=== PATIENT | female | born 1950 | race Caucasian/White ===

== ENCOUNTER 2017-11-15 10:09 | Emergency (ER) | payer MEDICARE ==
[~2017-11-15] VITALS: Ht 160 cm; Wt 81.7 kg
[~2017-11-15 10:09] MED LIST: ALPR1 PO; ASPI81CH PO; CHLO25B PO; HYDCHL25; HYDMOR2; KETO120T TOP; Miralax17 GM PO; OXYACE5T PO; PROM25; Percocet 10-321 EACH PO; SOMA350 MG; Toprol Xl25 MG PO
[2017-11-15] MEDS ORDERED: Cleocin HCl300 MG PO (12:01)
== END 2017-11-15 12:07 | disposition home or self-care (01) ==
LOC: ER 10:09
DX: K04.7 Periapical abscess without sinus (principal); Z88.0 Allergy status to penicillin; Z88.2 Allergy status to sulfonamides; Z88.1 Allergy status to other antibiotic agents; Z88.5 Allergy status to narcotic agent; Z91.040 Latex allergy status; Z79.899 Other long term (current) drug therapy; I10 Essential (primary) hypertension; F41.9 Anxiety disorder, unspecified; Z87.891 Personal history of nicotine dependence
CPT/HCPCS: 64400; 99282-25

== ENCOUNTER 2021-02-18 17:31 | Emergency (ER) | payer MEDICARE ==
[~2021-02-18] VITALS: Ht 160 cm; Wt 88.5 kg
[~2021-02-18 17:31] MED LIST changes: +Cleocin HCl300 MG PO
[2021-02-18 18:02] LABS: BASOPHILS ABSOLUTE AUTO 0.03 K/mm3 (0.00-0.23); BASOPHILS PERCENT AUTO 0 % (0-2); EOSINOPHILS ABSOLUTE AUTO 0.17 K/mm3 (0.00-0.68); EOSINOPHILS PERCENT AUTO 2 % (0-6); Hematocrit 47.8 % (33.0-51.0); Hemoglobin 15.8 g/dL (11.5-16.0); IMMATURE GRAN ABSOLUTE AUTO 0.02 K/mm3 (0.00-0.10); IMMATURE GRAN PERCENT AUTO 0 % (0-1); LYMPHOCYTES ABSOLUTE AUTO 2.67 K/mm3 (0.84-5.20); LYMPHOCYTES PERCENT AUTO 35 % (21-46); MONOCYTES ABSOLUTE AUTO 0.41 K/mm3 (0.16-1.47); MONOCYTES PERCENT AUTO 5 % (4-13); Mean Corpuscular HGB 27.9 pg (26.0-34.0); Mean Corpuscular HGB Conc 33.1 g/dL (31.5-36.5); Mean Corpuscular Volume 85 fL (80-100); Mean Platelet Volume 10.5 fL (9.1-12.4); NEUTROPHILS ABSOLUTE AUTO 4.33 K/mm3 (1.96-9.15); NEUTROPHILS PERCENT AUTO 57 % (41-73); Platelet Count 222 K/mm3 (150-400); RDW Coefficient Variation 12.9 % (11.7-14.2); RDW Standard Deviation 39.3 fL (35.1-46.3); Red Blood Cell Count 5.66 M/mm3 (3.80-5.20); White Blood Cell Count 7.63 K/mm3 (4.00-11.30)
[2021-02-18 18:16] LABS: Ethanol (Alcohol), Blood, Med <3 mg/dL
[2021-02-18 18:20] LABS: International Normalized Ratio 0.97; Prothrombin Time Results 10.2 Sec (9.7-11.5)
[2021-02-18 19:24] LABS: U Amphetamine Screen Not Detected; U Barbituate Screen Not Detected; U Benzodiazapine Screen Not Detected; U Buprenorphine Screen Not Detected; U Cannabinoids Screen Not Detected; U Cocaine Screen Not Detected; U Methadone Screen Not Detected; U Methamphetamine Screen Not Detected; U Opiates Screen Not Detected; U Oxycodone Screen Not Detected; U Phencyclidine Screen Not Detected; U Propoxyphene Screen Not Detected
[2021-02-18 22:48] LABS: Alanine Aminotransfer (ALT/SGP 24 U/L (12-78); Albumin, Blood 3.7 g/dL (3.4-5.0); Alk Phos 65 U/L (50-136); Anion Gap 9 mmol/L (6-16); Aspartate Aminotrans (AST/SGOT 30 U/L (12-37); Bilirubin, Total 0.7 mg/dL (0.1-1.0); Blood Urea Nitrogen 8 mg/dL (8-24); Bun/Creatinine Ratio 9.1 (12.0-20.0); CO2, Blood 24 mmol/L (21-32); Calcium, Blood 9.1 mg/dL (8.5-10.1); Chloride, Blood 108 mmol/L (98-108); Creatinine, Blood 0.88 mg/dL (0.40-1.00); Globulin, Blood 3.8 g/dL (2.2-4.0); Glomerular Filtration Rate >60 (60-); Glucose, Blood 97 mg/dL (70-99); Potassium, Blood 3.6 mmol/L (3.5-5.5); Sodium, Blood 141 mmol/L (136-145); Total Protein, Blood 7.5 g/dL (6.4-8.2)
== END 2021-02-18 23:20 | disposition short-term general hospital (02) ==
LOC: ER 17:31
PROVIDERS: Emergency Medicine
DX: I63.9 Cerebral infarction, unspecified (principal); G81.91 Hemiplegia, unspecified affecting right dominant side; I16.1 Hypertensive emergency; I10 Essential (primary) hypertension; M79.7 Fibromyalgia; Z88.0 Allergy status to penicillin; Z88.2 Allergy status to sulfonamides; Z88.8 Allergy status to other drugs, medicaments and biological substances; Z88.1 Allergy status to other antibiotic agents; Z88.5 Allergy status to narcotic agent; Z88.6 Allergy status to analgesic agent
CPT/HCPCS: 70450; 70496; 70498; 71045; 80053; 85025; 85610; 85730; 92977; 93005; 93010; 96365; 96366; 96375; 96376; 99285-25; A9270; G0480; J0360; J2405; J3101; J7050; Q9967

== ENCOUNTER 2021-04-26 14:40 | Inpatient (IN) | payer MEDICARE ==
[~2021-04-26] VITALS: Ht 160 cm; Wt 70.6 kg
[2021-04-26 15:08] LABS: BASOPHILS ABSOLUTE AUTO 0.06 K/mm3 (0.00-0.23); BASOPHILS PERCENT AUTO 1 % (0-2); EOSINOPHILS ABSOLUTE AUTO 0.48 K/mm3 (0.00-0.68); EOSINOPHILS PERCENT AUTO 4 % (0-6); Hematocrit 50.3 % (33.0-51.0); Hemoglobin 16.4 g/dL (11.5-16.0); IMMATURE GRAN ABSOLUTE AUTO 0.03 K/mm3 (0.00-0.10); IMMATURE GRAN PERCENT AUTO 0 % (0-1); LYMPHOCYTES ABSOLUTE AUTO 3.77 K/mm3 (0.84-5.20); LYMPHOCYTES PERCENT AUTO 33 % (21-46); MONOCYTES ABSOLUTE AUTO 0.58 K/mm3 (0.16-1.47); MONOCYTES PERCENT AUTO 5 % (4-13); Mean Corpuscular HGB 27.3 pg (26.0-34.0); Mean Corpuscular HGB Conc 32.6 g/dL (31.5-36.5); Mean Corpuscular Volume 84 fL (80-100); Mean Platelet Volume 11.4 fL (9.1-12.4); NEUTROPHILS ABSOLUTE AUTO 6.54 K/mm3 (1.96-9.15); NEUTROPHILS PERCENT AUTO 57 % (41-73); Platelet Count 265 K/mm3 (150-400); RDW Coefficient Variation 13.4 % (11.7-14.2); RDW Standard Deviation 40.9 fL (35.1-46.3); Red Blood Cell Count 6.01 M/mm3 (3.80-5.20); White Blood Cell Count 11.46 K/mm3 (4.00-11.30)
[2021-04-26] MEDS ORDERED: LISI20 PO (15:08)
[2021-04-26] MEDS ORDERED: MIRTAZAPINE7.5 M1 PO (15:08)
[2021-04-26] MEDS ORDERED: LIPITOR80 MG PO (15:08)
[2021-04-26] MEDS ORDERED: TIZANIDINE HCL2 M1 PO (15:09)
[2021-04-26] MEDS ORDERED: TRAM50 PO (15:09)
[2021-04-26] MEDS ORDERED: ONDA4 PO (15:10)
[2021-04-26 15:22] LABS: Magnesium, Blood 1.9 mg/dL (1.6-2.4); Troponin I 0.017 ng/mL (0.000-0.040)
[2021-04-26 15:23] LABS: Albumin, Blood 3.4 g/dL (3.4-5.0); Bilirubin, Total 0.7 mg/dL (0.1-1.0); Bun/Creatinine Ratio 21.2 (12.0-20.0); Calcium, Blood 10.3 mg/dL (8.5-10.1); Creatinine, Blood 1.79 mg/dL (0.40-1.00); Globulin, Blood 3.5 g/dL (2.2-4.0); Potassium, Blood 3.7 mmol/L (3.5-5.5); Total Protein, Blood 6.9 g/dL (6.4-8.2)
[2021-04-26 18:26] LABS: Source, Urine Clean Catch
[2021-04-26 18:30] LABS: Blood, Urine Neg (Neg); Glucose Qualitative, Urine Neg (Neg); Ketones, Urine 1+ (Neg); Leukocyte Esterase, Urine Neg (Neg); Nitrite, Urine Neg (Neg); Protein, Urine Neg (Neg); Urobilinogen, Urine NORM (Normal)
[2021-04-26 18:36] LABS: Appearance, Urine Clear (Clear); Bilirubin, Urine 1+ (Neg); Color, Urine Pale Yellow (P-Yellow)
[2021-04-27 04:42] LABS: Hematocrit 36.1 % (33.0-51.0); Hemoglobin 11.9 g/dL (11.5-16.0); Mean Corpuscular HGB 27.8 pg (26.0-34.0); Mean Corpuscular Volume 84 fL (80-100); Mean Platelet Volume 10.9 fL (9.1-12.4); Platelet Count 118 K/mm3 (150-400); RDW Coefficient Variation 13.2 % (11.7-14.2); RDW Standard Deviation 40.6 fL (35.1-46.3); Red Blood Cell Count 4.28 M/mm3 (3.80-5.20); White Blood Cell Count 5.47 K/mm3 (4.00-11.30)
[2021-04-27 05:22] LABS: Bun/Creatinine Ratio 21.8 (12.0-20.0); Calcium, Blood 8.4 mg/dL (8.5-10.1); Creatinine, Blood 1.24 mg/dL (0.40-1.00); Potassium, Blood 3.5 mmol/L (3.5-5.5)
--- NOTE | 2021-04-27 12:59 | NUR ---
PATIENTS DAUGHTER RAYMOND CALLED THE PATIENTS ROOM PHONE AND REQUESTED TO SPEAK TO A NURSE. DAUGHTER STATED THAT "MOM SOUNDS MORE CONFUSED", SHE SAID THAT IN THE MORNINGS HER MOM SOMETIMES IS A BIT CONFUSED, BUT CLEARS AND IT ISN'T THIS MUCH. I NOTED WHEN ASSESSED THIS AM THAT THE PATIENT WAS ONLY ALERT X 1. SHE DOESN'T KNOW WHERE SHE IS OR HOW SHE GOT HERE. PATIENT AND DAUGHTER CONFIRMED THAT SHE DID HAVE A STROKE LAST FALL. SHE HAD NO OTHER COMPLAINTS.
--- NOTE | 2021-04-27 18:41 | NUR ---
PATIENT HAS SOME CONFUSION. SHE ISN'T ABLE TO RECALL COMING TO THE ER, AND WAS NOT ABLE TO REMEMBER WHERE SHE WAS WHEN ASSESSED THIS AM. DAUGHTER OF PATIENT STATED NOT HER NORM. PROVIDER WAS UPDATED AND HE ORDERED A CT. CT DOES SHOW SOME CHANGE FROM THE LAST CT IN THE SYSTEM. PATIENT HAS LEFT SIDES WEAKNESS THAT IS HER BASELINE. 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 SHE IS TEARFUL AT TIMES, WISHING TO GO HOME. PATIENT HAS NO COUGH, LS CLEAR.
--- NOTE | 2021-04-28 03:16 | NUR ---
SHIFT SUMMARY AOX3 WITH SOME CONFUSION AT TIME CONT EXTENSIVE CARE DUE TO LEFT SIDE WEAKNESS PLEASANT NO S/S OF ANXIETY.MCGUIRE DRANING ANBER URINE 800ML NOTED C/O PAIN TO HET LEFT HAND TRAMADOL ADMIN PER EMAR WITH POSTIVE EFFECT PT VERBALIZED NO PAIN AT THIS MOMENT
[2021-04-28 05:35] LABS: Bun/Creatinine Ratio 16.4 (12.0-20.0); Calcium, Blood 8.4 mg/dL (8.5-10.1); Creatinine, Blood 0.98 mg/dL (0.40-1.00)
--- NOTE | 2021-04-28 10:48 | NUR ---
IV FLUID NS RATE CHANGED TO 50ML/HOUR.
--- NOTE | 2021-04-28 17:37 | NUR ---
PATIENT CONTINUES TO HAVE ALTERED MENTATION. SHE HAD AN EPISODE OF CONFUSION TODAY WHEN SHE THOUGHT THAT THE CHUTE TAPPER/NURSE TOOK THE TAHMINA OUT OF HER HAIR BECAUSE THEY WOULD GAIN POINTS BY DOING SO. SHE WAS TEARFUL EXPLAINING THAT HER DAUGHTER JUST BRAIDED HER HAIR TODAY. PATIENTS APPETITE WAS POOR TODAY HOWEVER SHE IS EATING HER DINNER AND ENJOYING IT NOW. PATIENTS DAUGHTER WAS UPDATED BY PHONE TODAY. MCGUIRE CATH WAS DISCONTINUED TODAY. SHE DID VOID AFTER THE MCGUIRE WAS REMOVED. IT SEEMED TO BE CLOUDY AND HAVE A FOUL ODOR HOWEVER THERE WAS SOME CONTAMINATION WITH STOOL. WILL REPORT TO NOC SHIFT TO MONITOR FOR S & S OF UTI.
--- NOTE | 2021-04-29 03:41 | NUR ---
SHIFT SUMMARY RECEIVED REPORT FROM ONGOING STAFF PATIENT HAS BEEN EXBITING SOME CONFUSION DURING DAY SHIFT.PATIENT PLEASANT IN THIS SHIFT NO INCREASED CONFUSION NOTED IN THIS SHIFT ABLE TO VOICE PAIN AND MAKE NEEDS KNOWN.ASSISTED WITH INCONTINENCE CARE FOR BLADDER AND BOWEL.
[2021-04-29] MEDS ORDERED: AMLO5 PO (11:40)
[2021-04-29] MEDS ORDERED: ASPI81CH PO (11:40)
--- NOTE | 2021-04-29 14:28 | NUR ---
DISCHARGE PT & DAUGHTER, CHIKI EDUCATED ON DC INSTRUCTIONS AND NEW MEDS. NO FURTHER NEED FOR INSTRUCTION AT THIS TIME. PT WHEELED OUT BY AIDE & DRIVEN HOME BY DAUGHTER. IV REMOVED & INTACT. NO ACUTE CHANGES IN ASSESSMENT PRIOR TO DC. BELONGINGS SENT HOME WITH PT.
== END 2021-04-29 14:25 | disposition home or self-care (01) | DRG 682 ==
LOC: ER 14:40 → MEDS 14:41 → ERHOLD 14:41 → MEDS 20:14 → ENPENDDIS 04-29 11:19 → MEDS 04-29 14:25
PROVIDERS: Emergency Medicine; Internal Medicine; Nurse Practitioner Acute Care; ADMIT Internal Medicine
DX: N17.9 Acute kidney failure, unspecified (principal); R53.2 Functional quadriplegia; G93.40 Encephalopathy, unspecified; I47.1 Supraventricular tachycardia; Z66 Do not resuscitate; R33.9 Retention of urine, unspecified; Z68.34 Body mass index [BMI] 34.0-34.9, adult; E86.0 Dehydration; E66.01 Morbid (severe) obesity due to excess calories; E87.6 Hypokalemia; I10 Essential (primary) hypertension; M79.7 Fibromyalgia; Z86.73 Personal history of transient ischemic attack (TIA), and cerebral infarction without residual deficits; Z90.49 Acquired absence of other specified parts of digestive tract; Z98.890 Other specified postprocedural states; Z79.899 Other long term (current) drug therapy; Z88.5 Allergy status to narcotic agent; Z88.8 Allergy status to other drugs, medicaments and biological substances; Z87.891 Personal history of nicotine dependence
CPT/HCPCS: 36415; 51702; 51798; 70450; 76770; 80048; 80053; 81003; 82550; 83735; 84132; 84484; 85025; 85027; 93005; 93010; 96372; 96374; 96375; 99285-25; A9270; G0378; J0153; J1644; J2405; J7030

== ENCOUNTER 2021-06-21 16:56 | Emergency (ER) | payer MEDICARE ==
[~2021-06-21] VITALS: Ht 160 cm; Wt 77.1 kg
[~2021-06-21 16:56] MED LIST changes: +AMLO5 PO; +LIPITOR80 MG PO; +LISI20 PO; +MIRTAZAPINE7.5 M1 PO; +ONDA4 PO; +TIZANIDINE HCL2 M1 PO; +TRAM50 PO
[2021-06-21 17:19] LABS: BASOPHILS ABSOLUTE AUTO 0.02 K/mm3 (0.00-0.23); BASOPHILS PERCENT AUTO 0 % (0-2); EOSINOPHILS ABSOLUTE AUTO 0.13 K/mm3 (0.00-0.68); EOSINOPHILS PERCENT AUTO 1 % (0-6); Hematocrit 36.9 % (33.0-51.0); IMMATURE GRAN ABSOLUTE AUTO 0.05 K/mm3 (0.00-0.10); IMMATURE GRAN PERCENT AUTO 0 % (0-1); LYMPHOCYTES ABSOLUTE AUTO 1.82 K/mm3 (0.84-5.20); LYMPHOCYTES PERCENT AUTO 15 % (21-46); MONOCYTES ABSOLUTE AUTO 0.82 K/mm3 (0.16-1.47); MONOCYTES PERCENT AUTO 7 % (4-13); Mean Corpuscular HGB 28.1 pg (26.0-34.0); Mean Corpuscular HGB Conc 32.5 g/dL (31.5-36.5); Mean Corpuscular Volume 86 fL (80-100); Mean Platelet Volume 10.4 fL (9.1-12.4); NEUTROPHILS ABSOLUTE AUTO 9.16 K/mm3 (1.96-9.15); NEUTROPHILS PERCENT AUTO 76 % (41-73); Platelet Count 287 K/mm3 (150-400); RDW Coefficient Variation 12.8 % (11.7-14.2); RDW Standard Deviation 40.4 fL (35.1-46.3); Red Blood Cell Count 4.27 M/mm3 (3.80-5.20)
[2021-06-21 17:30] LABS: Albumin, Blood 2.9 g/dL (3.4-5.0); Albumin/Globulin Ratio 0.9 (0.8-1.8); Bun/Creatinine Ratio 23.9 (12.0-20.0); Calcium, Blood 8.9 mg/dL (8.5-10.1); Creatinine, Blood 1.17 mg/dL (0.40-1.00); Globulin, Blood 3.3 g/dL (2.2-4.0); Potassium, Blood 2.7 mmol/L (3.5-5.5); Total Protein, Blood 6.2 g/dL (6.4-8.2)
[2021-06-21 17:46] LABS: Blood, Urine 5+ (Neg); Glucose Qualitative, Urine Neg (Neg); Leukocyte Esterase, Urine 3+ (Neg); Nitrite, Urine Pos (Neg); Protein, Urine 3+ (Neg); Source, Urine Straight Cath; Urobilinogen, Urine 2+ (Normal)
[2021-06-21 18:06] LABS: Ketones, Urine 1+ (Neg); Specific Gravity, Urine 1.015 (1.003-1.022)
[2021-06-21 18:07] LABS: Appearance, Urine Cloudy (Clear); Color, Urine Amber (P-Yellow)
[2021-06-21 18:08] LABS: Bilirubin, Urine 2+ (Neg)
[2021-06-21 18:09] LABS: Amorphous Light (0-Heavy); Bacteria Many /hpf; Red Blood Cells, Urine 25-50 /hpf (0-2); Squamous Epithelial Cells Few /hpf (Few)
[2021-06-21] MEDS ORDERED: CEPH500 PO (20:01)
== END 2021-06-21 20:30 | disposition home or self-care (01) ==
LOC: ER 16:56
PROVIDERS: Emergency Medicine
DX: N39.0 Urinary tract infection, site not specified (principal); E86.0 Dehydration; E87.6 Hypokalemia; I10 Essential (primary) hypertension; Z79.899 Other long term (current) drug therapy; Z87.891 Personal history of nicotine dependence
CPT/HCPCS: 51701; 80053; 81001; 85025; 87086; 96374; 96375; 99283-25; A9270; J0696; J3480; J7030

== ENCOUNTER 2024-01-10 17:42 | Emergency (ER) | payer MEDICARE ==
[~2024-01-10] VITALS: Ht 162.6 cm; Wt 72.6 kg
[~2024-01-10 17:42] MED LIST changes: +CEPH500 PO
[2024-01-10 20:26] LABS: BASOPHILS ABSOLUTE AUTO 0.02 K/mm3 (0.00-0.23); BASOPHILS PERCENT AUTO 0 % (0-2); EOSINOPHILS ABSOLUTE AUTO 0.01 K/mm3 (0.00-0.68); EOSINOPHILS PERCENT AUTO 0 % (0-6); Hematocrit 35.8 % (33.0-51.0); Hemoglobin 11.7 g/dL (11.5-16.0); IMMATURE GRAN ABSOLUTE AUTO 0.04 K/mm3 (0.00-0.10); IMMATURE GRAN PERCENT AUTO 0 % (0-1); LYMPHOCYTES ABSOLUTE AUTO 0.75 K/mm3 (0.84-5.20); LYMPHOCYTES PERCENT AUTO 7 % (21-46); MONOCYTES ABSOLUTE AUTO 0.41 K/mm3 (0.16-1.47); MONOCYTES PERCENT AUTO 4 % (4-13); Mean Corpuscular HGB 27.1 pg (26.0-34.0); Mean Corpuscular HGB Conc 32.7 g/dL (31.5-36.5); Mean Corpuscular Volume 83 fL (80-100); Mean Platelet Volume 10.3 fL (9.1-12.4); NEUTROPHILS ABSOLUTE AUTO 8.99 K/mm3 (1.96-9.15); NEUTROPHILS PERCENT AUTO 88 % (41-73); Platelet Count 146 K/mm3 (150-400); RDW Coefficient Variation 14.3 % (11.7-14.2); RDW Standard Deviation 43.8 fL (35.1-46.3); Red Blood Cell Count 4.31 M/mm3 (3.80-5.20); White Blood Cell Count 10.22 K/mm3 (4.00-11.30)
[2024-01-10 21:17] LABS: Albumin, Blood 2.8 g/dL (3.4-5.0); Albumin/Globulin Ratio 0.9 (0.8-1.8); Bilirubin, Total 0.7 mg/dL (0.1-1.0); Bun/Creatinine Ratio 20.2 (12.0-20.0); Calcium, Blood 8.9 mg/dL (8.5-10.1); Creatinine, Blood 0.79 mg/dL (0.40-1.00); Potassium, Blood 4.2 mmol/L (3.5-5.5); Total Protein, Blood 5.8 g/dL (6.4-8.2)
[2024-01-10 23:39] VITALS: BP 123/68
== END 2024-01-10 23:39 | disposition home or self-care (01) ==
LOC: ER 17:42
PROVIDERS: Student in an Organized Health Care Education/Training Program
DX: G45.9 Transient cerebral ischemic attack, unspecified (principal); Z88.8 Allergy status to other drugs, medicaments and biological substances; Z88.5 Allergy status to narcotic agent; Z79.899 Other long term (current) drug therapy; Z79.82 Long term (current) use of aspirin; I10 Essential (primary) hypertension; G40.909 Epilepsy, unspecified, not intractable, without status epilepticus; Z87.891 Personal history of nicotine dependence
CPT/HCPCS: 70450; 70496; 70498; 80053; 85025; 93005; 93010; 99285-25; Q9967

== ENCOUNTER 2024-04-09 22:15 | Inpatient (IN) | payer MEDICARE ==
[~2024-04-09] VITALS: Ht 160 cm; Wt 56.3 kg
[2024-04-10] MEDS ORDERED: NS 1,000 ML IV SCH (01:00)
[2024-04-10 01:30] LABS: Source, Urine Straight Cath
[2024-04-10 01:33] LABS: Blood, Urine 5+ (Neg); Glucose Qualitative, Urine Neg (Neg); Ketones, Urine 2+ (Neg); Leukocyte Esterase, Urine 1+ (Neg); Nitrite, Urine Neg (Neg); Protein, Urine 3+ (Neg); Urobilinogen, Urine 2+ (Normal)
[2024-04-10 01:36] LABS: Appearance, Urine Hazy (Clear); Bilirubin, Urine 2+ (Neg); Color, Urine Amber (P-Yellow)
[2024-04-10 01:43] LABS: Amorphous Mod (0-Heavy); Bacteria Many /hpf; Red Blood Cells, Urine 0-2 /hpf (0-2); Squamous Epithelial Cells Few /hpf (Few)
[2024-04-10 01:48] LABS: BASOPHILS ABSOLUTE AUTO 0.01 K/mm3 (0.00-0.23); BASOPHILS PERCENT AUTO 0 % (0-2); EOSINOPHILS PERCENT AUTO 0 % (0-6); Hematocrit 28.7 % (33.0-51.0); Hemoglobin 9.8 g/dL (11.5-16.0); IMMATURE GRAN ABSOLUTE AUTO 0.07 K/mm3 (0.00-0.10); IMMATURE GRAN PERCENT AUTO 1 % (0-1); LYMPHOCYTES ABSOLUTE AUTO 0.85 K/mm3 (0.84-5.20); LYMPHOCYTES PERCENT AUTO 11 % (21-46); MONOCYTES ABSOLUTE AUTO 0.56 K/mm3 (0.16-1.47); MONOCYTES PERCENT AUTO 7 % (4-13); Mean Corpuscular HGB 27.7 pg (26.0-34.0); Mean Corpuscular HGB Conc 34.1 g/dL (31.5-36.5); Mean Corpuscular Volume 81 fL (80-100); Mean Platelet Volume 10.5 fL (9.1-12.4); NEUTROPHILS ABSOLUTE AUTO 6.44 K/mm3 (1.96-9.15); NEUTROPHILS PERCENT AUTO 81 % (41-73); Platelet Count 207 K/mm3 (150-400); RDW Coefficient Variation 14.8 % (11.7-14.2); RDW Standard Deviation 43.9 fL (35.1-46.3); Red Blood Cell Count 3.54 M/mm3 (3.80-5.20); White Blood Cell Count 7.93 K/mm3 (4.00-11.30)
[2024-04-10 01:54] LABS: U Amphetamine Screen Not Detected; U Barbituate Screen Not Detected; U Benzodiazapine Screen Not Detected; U Buprenorphine Screen Not Detected; U Cannabinoids Screen Not Detected; U Cocaine Screen Not Detected; U Methadone Screen Not Detected; U Methamphetamine Screen Not Detected; U Opiates Screen Not Detected; U Oxycodone Screen Not Detected; U Phencyclidine Screen Not Detected
[2024-04-10 02:10] LABS: Influenza B, PCR NEGATIVE (NEGATIVE); Resp Syncytial Virus, PCR NEGATIVE (NEGATIVE)
[2024-04-10 02:14] LABS: Acetaminophen, Random <2.0 ug/mL (10.0-30.0); Alanine Aminotransfer (ALT/SGP 27 U/L (12-78); Albumin, Blood 2.3 g/dL (3.4-5.0); Albumin/Globulin Ratio 0.6 (0.8-1.8); Alk Phos 58 U/L (50-136); Anion Gap 15 mmol/L (3-11); Aspartate Aminotrans (AST/SGOT 70 U/L (12-37); Blood Urea Nitrogen 29 mg/dL (8-24); Bun/Creatinine Ratio 30.9 (12.0-20.0); CO2, Blood 25 mmol/L (21-32); Calcium, Blood 8.7 mg/dL (8.5-10.1); Chloride, Blood 98 mmol/L (98-108); Creatinine, Blood 0.94 mg/dL (0.40-1.00); Glomerular Filtration Rate 65 (60-); Glucose, Blood 97 mg/dL (70-99); Magnesium, Blood 1.8 mg/dL (1.6-2.4); Phosphorus, Blood 1.1 mg/dL (2.5-4.9); Potassium, Blood 2.9 mmol/L (3.5-5.5); Salicylate <1.7 mg/dL (2.8-20.0); Sodium, Blood 135 mmol/L (136-145); Total Protein, Blood 6.3 g/dL (6.4-8.2)
[2024-04-10] MEDS ORDERED: Azithromycin 500 MG in NS 250 ML IV ONE (02:20)
[2024-04-10] MEDS ORDERED: CefTRIAXone Sodium 1,000 MG in NS 50 ML IV ONE (02:20)
[2024-04-10 02:44] LABS: Base Excess Venous 1.4 mmol/L; Bicarbonate Venous 25.7 mmol/L (24.0-30.0); PCO2 Venous 34.9 mmHg (38-42); pH Blood Venous 7.47 (7.34-7.37)
[2024-04-10 03:35] LABS: Influenza A, PCR POSITIVE (NEGATIVE); SARS-Cov-2 (COVID-19) PCR, MMC POSITIVE (NEGATIVE)
[2024-04-10] MEDS ORDERED: Potassium Phosphate Dibasic 30 MM in Dextrose 5% 500 ML IV ONE (04:30)
[2024-04-10] MEDS ORDERED: Enoxaparin 40 MG/0.4 ML SYR SC SCH (09:00)
[2024-04-10] MEDS ORDERED: Oseltamvir Phosphate 6 MG/ML 1MLORALSYR PO ONE (14:00)
[2024-04-10 16:30] VITALS: BP 101/75
[2024-04-10] MEDS ORDERED: D5W-LR 1,000 ML IV SCH ×2 (17:20→17:55)
--- NOTE | 2024-04-10 18:01 | NUR ---
SHIFT SUMMARY PT A NEW ADMIT THIS AFTERNOON, AOX1-2. SOMNOLENT AND RESPONDS TO VERBAL STIMULI. SHE DOES NOT CALL. SHE HAS BEEN REPOSITIONED THROUGOUT THE SHIFT SINCE HER ARRIVAL. INCONTINENT AND BRIEF CHANGED NEEDED. LOOSE STOOLS WITH SOME SOLID PIECES. PT UNABLE TO REPORT HOME MEDICATIONS AND IS NOT A GOOD HISTORIAN. PT ON DROPLET PRECAUTIONS. CALL LIGHT WITHIN REACH, BED LOCKED AND IN THE LOWEST POSITION. WILL REPORT TO ONCOMING NURSE.
[2024-04-10] MEDS ORDERED: NS 250 ML IV PRN (19:50)
[2024-04-10 20:56] VITALS: BP 106/63
[2024-04-10] MEDS ORDERED: CefTRIAXone Sodium 1,000 MG in NS 100 ML IV SCH (21:00)
[2024-04-10] MEDS ORDERED: Oseltamvir Phosphate 6 MG/ML 1MLORALSYR PO SCH (21:00)
[2024-04-10] MEDS ORDERED: Doxycycline Hyclate 100 MG in Dextrose 5% 250 ML IV SCH (21:00)
[2024-04-11 03:46] VITALS: BP 107/72
[2024-04-11] MEDS ORDERED: Vancomycin HCL 1,250 MG in NS 250 ML IV ONE (05:20)
[2024-04-11 06:04] LABS: BASOPHILS ABSOLUTE AUTO 0.01 K/mm3 (0.00-0.23); BASOPHILS PERCENT AUTO 0 % (0-2); EOSINOPHILS PERCENT AUTO 0 % (0-6); Hematocrit 23.2 % (33.0-51.0); Hemoglobin 7.8 g/dL (11.5-16.0); IMMATURE GRAN ABSOLUTE AUTO 0.06 K/mm3 (0.00-0.10); IMMATURE GRAN PERCENT AUTO 1 % (0-1); LYMPHOCYTES ABSOLUTE AUTO 0.94 K/mm3 (0.84-5.20); LYMPHOCYTES PERCENT AUTO 21 % (21-46); MONOCYTES ABSOLUTE AUTO 0.38 K/mm3 (0.16-1.47); MONOCYTES PERCENT AUTO 9 % (4-13); Mean Corpuscular HGB 27.3 pg (26.0-34.0); Mean Corpuscular HGB Conc 33.6 g/dL (31.5-36.5); Mean Corpuscular Volume 81 fL (80-100); Mean Platelet Volume 10.4 fL (9.1-12.4); NEUTROPHILS ABSOLUTE AUTO 3.06 K/mm3 (1.96-9.15); NEUTROPHILS PERCENT AUTO 69 % (41-73); Platelet Count 127 K/mm3 (150-400); RDW Coefficient Variation 14.8 % (11.7-14.2); RDW Standard Deviation 43.5 fL (35.1-46.3); Red Blood Cell Count 2.86 M/mm3 (3.80-5.20); White Blood Cell Count 4.45 K/mm3 (4.00-11.30)
--- NOTE | 2024-04-11 06:13 | NUR ---
SHIFT SUMMARY PT ALERT TO SELF. RESPONDS TO STIMULI AND WILL RESPOND TO YES NO QUESTIONS WITH HEAD SHAKE. PT VERY SOMNOLENT. NIGHT TIME PO MED NOT GIVEN D/T DROWSINESS. CONTINUING D5wLR @ 100ML/HR. BG CHECKED AT 2300 PRN AND WAS 118. BLOOD CULTURE POSITIVE FOR GRAM + COCCI IN CLUSTERS, PER HEMOTOLOGY. DR BYRD NOTIFIED AND ORDER GIVEN FOR VANCO. INCONTINET, ATTENDS CHANGED PRN. FOAM DRESSING ON COCCYX AND MIDDLE BACK IN PLACE. TURNED T/O NIGHT. IV ABX GIVEN PER EMAR. VSS. BED ALARM ON. BED IN LOWEST POSITION AND CALL LIGHT IN REACH.
[2024-04-11 06:44] LABS: Albumin, Blood 1.6 g/dL (3.4-5.0); Albumin/Globulin Ratio 0.5 (0.8-1.8); Bilirubin, Total 0.8 mg/dL (0.1-1.0); Bun/Creatinine Ratio 29.9 (12.0-20.0); Calcium, Blood 7.6 mg/dL (8.5-10.1); Creatinine, Blood 0.97 mg/dL (0.40-1.00); Potassium, Blood 2.4 mmol/L (3.5-5.5); Total Protein, Blood 4.6 g/dL (6.4-8.2)
[2024-04-11] MEDS ORDERED: Potassium Chloride 40 MEQ in NS 250 ML IV ONE ×2 (06:55→16:30)
[2024-04-11 07:12] VITALS: BP 107/72
[2024-04-11] MEDS ORDERED: Thiamine HCl 100 MG Tab PO SCH (09:00)
[2024-04-11] MEDS ORDERED: Multivitamins 1 Tab PO SCH (09:00)
[2024-04-11] MEDS ORDERED: Potassium Chloride 20 MEQ in NS 90 ML IV ONE (11:00)
[2024-04-11] MEDS ORDERED: Potassium Chl 10MEQ/Water100ML 100 ML IV SCH (11:00)
[2024-04-11] MEDS ORDERED: TPN Consult Notification XX ONE (13:50)
[2024-04-11 15:34] VITALS: BP 126/81
[2024-04-11 15:55] LABS: Bun/Creatinine Ratio 30.5 (12.0-20.0); Calcium, Blood 7.7 mg/dL (8.5-10.1); Creatinine, Blood 0.92 mg/dL (0.40-1.00); Potassium, Blood 3.2 mmol/L (3.5-5.5)
--- NOTE | 2024-04-11 16:02 | NUR ---
ROUNDED ON PATIENT, SHE WAS ASLEEP BUT APPEARED COMFORTABLE. DISCUSSED CASE WITH BEDSIDE RN. PATIENT HAS BEEN CONFUSED. CALLED DAUGHTER YAKELIN AT [phone] AND LEFT MESSAGE.
[2024-04-11] MEDS ORDERED: Potassium Phosphate Dibasic 30 MM in Dextrose 5% 500 ML IV STA (16:29)
[2024-04-11] MEDS ORDERED: [UNRECOGNIZED DRUG - OTHER] IV SCH (17:00)
[2024-04-11] MEDS ORDERED: PARENTERAL ELECTOLYTES POTASSIUM PHOSPHATE DIBASIC MM MULTIVITAMINS ZINC IV SCH (17:00)
--- NOTE | 2024-04-11 18:44 | NUR ---
SHIFT SUMMARY PATIIENT AROUSES. SLOW TO RESPOND TO QUESTIONS. PATIENT ABLE TO SAY A FEW WORD RESPONSES AT TIMES. L SIDE CONTRACTED AND STIFF FROM OLD STROKE. PATIENT VERBALIZES PAIN ON L SIDE WITH MOVEMENT. PATIENT CONTINUES TO HAVE MOIST PRODUCTIVE COUGH OF CLEAR DRAINAGE. ORAL SUCTIONING DONE AND NASAL SUCTIONING PROVIDED NEEDED. PATIENT CONTINUES TO BE NAUSEATED AND VOMITTING AT TIMES. SPEACH UNABLE TO GET PATIENT TO PARTICIPATE IN SWALLOW EVAL. PATIENT REFUSING TO EAT ANYTHING. PATIENT CONTINUES TO HAVE LIQUID STOOLS. PATIENT BLADDER SCANNED WITH LESS THAN 200 IN BLADDER. PATIENT INCONTINENT URINE X1. SKIN BREAKDOWN REDRESSED WITH MEPILEX DRESSING AND BARRIER CREAM APPLIED TO ABRASED AREA ON BUTTOCKS.
[2024-04-11 19:46] VITALS: BP 121/66
[2024-04-11] MEDS ORDERED: Ketorolac Tromethamine 15mg Vial IV PRN (22:45)
[2024-04-11] MEDS ORDERED: Vancomycin HCL 750 MG in NS 250 ML IV SCH (22:56)
[2024-04-12 03:52] VITALS: BP 114/64
--- NOTE | 2024-04-12 05:55 | NUR ---
SHIFT SUMMARY PT MORE ALERT AND RESPONSIVE THIS SHIFT. ABLE TO ANSWER QUESTIONS APPROPRIATLY. A&Ox2. CONTINUING IV ABX AND PPN NUTRITION. PT HAD POTASSIUM PHOSPHATE INFUSING AT START OF SHIFT BUT WAS NOT ABLE TO INFUSE LAST 100ML D/T IV LEAKING. SEVERAL ATTMEPTS WHERE MADE TO PLACE NEW IV WITH NO SUCCESS. PT ALSO C/O PAIN IN RIGHT ARM FROM IV's. MEDICATED PER EMAR. PT HAD SEVERAL LOOSE STOOL T/O NIGHT. BLADDER SCANED AT 0400 AND SHOWED 86ml. VSS. PT DID NOT SLEEP DURING THE NIGHT. BED IN LOWEST POSITION AND CALL LIGHT IN REACH.
[2024-04-12 06:53] LABS: Alanine Aminotransfer (ALT/SGP 24 U/L (12-78); Albumin, Blood 1.6 g/dL (3.4-5.0); Albumin/Globulin Ratio 0.5 (0.8-1.8); Alk Phos 43 U/L (50-136); Anion Gap 11 mmol/L (3-11); Aspartate Aminotrans (AST/SGOT 59 U/L (12-37); Bilirubin, Total 0.7 mg/dL (0.1-1.0); Blood Urea Nitrogen 28 mg/dL (8-24); Bun/Creatinine Ratio 30.6 (12.0-20.0); CO2, Blood 23 mmol/L (21-32); Calcium, Blood 7.1 mg/dL (8.5-10.1); Chloride, Blood 106 mmol/L (98-108); Creatinine, Blood 0.92 mg/dL (0.40-1.00); Globulin, Blood 3.2 g/dL (2.2-4.0); Glomerular Filtration Rate 67 (60-); Glucose, Blood 105 mg/dL (70-99); Magnesium, Blood 1.3 mg/dL (1.6-2.4); Phosphorus, Blood 4.1 mg/dL (2.5-4.9); Potassium, Blood 4.2 mmol/L (3.5-5.5); Sodium, Blood 136 mmol/L (136-145); Total Protein, Blood 4.8 g/dL (6.4-8.2); Triglycerides 124 mg/dL (30-160)
[2024-04-12 07:25] VITALS: BP 113/66
[2024-04-12] MEDS ORDERED: Magnesium Sulf 2 GM/Water 50ML 50 ML IV STA (08:03)
[2024-04-12 08:24] LABS: BASOPHILS ABSOLUTE AUTO 0.01 K/mm3 (0.00-0.23); BASOPHILS PERCENT AUTO 0 % (0-2); EOSINOPHILS ABSOLUTE AUTO 0.04 K/mm3 (0.00-0.68); EOSINOPHILS PERCENT AUTO 1 % (0-6); Hematocrit 22.1 % (33.0-51.0); Hemoglobin 7.4 g/dL (11.5-16.0); IMMATURE GRAN ABSOLUTE AUTO 0.07 K/mm3 (0.00-0.10); IMMATURE GRAN PERCENT AUTO 1 % (0-1); LYMPHOCYTES ABSOLUTE AUTO 1.29 K/mm3 (0.84-5.20); LYMPHOCYTES PERCENT AUTO 24 % (21-46); MONOCYTES ABSOLUTE AUTO 0.31 K/mm3 (0.16-1.47); MONOCYTES PERCENT AUTO 6 % (4-13); Mean Corpuscular HGB 27.4 pg (26.0-34.0); Mean Corpuscular HGB Conc 33.5 g/dL (31.5-36.5); Mean Corpuscular Volume 82 fL (80-100); Mean Platelet Volume 10.3 fL (9.1-12.4); NEUTROPHILS ABSOLUTE AUTO 3.67 K/mm3 (1.96-9.15); NEUTROPHILS PERCENT AUTO 68 % (41-73); Platelet Count 118 K/mm3 (150-400); RDW Standard Deviation 44.4 fL (35.1-46.3); White Blood Cell Count 5.39 K/mm3 (4.00-11.30)
[2024-04-12 10:36] LABS: Campylobacter Sp Not Detected (NOT DETECT); Enteroaggregative E. coli-EAEC Not Detected (NOT DETECT); Plesiomonas Shigelloides Not Detected (NOT DETECT); Salmonella Sp Not Detected (NOT DETECT); Vibrio Cholerae Not Detected (NOT DETECT); Vibrio Sp Not Detected (NOT DETECT); Yersinia Enterocolitica Not Detected (NOT DETECT)
[2024-04-12 10:37] LABS: Adenovirus F 40/41 Not Detected (NOT DETECT); Astrovirus Not Detected (NOT DETECT); Cryptosporidium Not Detected (NOT DETECT); Cyclospora Cayetanensis Not Detected (NOT DETECT); E. Coli O157 Not Detected (NOT DETECT); Entamoeba Histolytica Not Detected (NOT DETECT); Enteropathogenic E. coli-EPEC Not Detected (NOT DETECT); Enterotoxigenic E. coli-ETEC Not Detected (NOT DETECT); Giardia Lamblia Not Detected (NOT DETECT); Norovirus GI/GII Detected (NOT DETECT); Rotavirus A Not Detected (NOT DETECT); Sapovirus Not Detected (NOT DETECT); Shiga Toxin-prod E. coli-STEC Not Detected (NOT DETECT); Shigella/Enteroin E. coli-EIEC Not Detected (NOT DETECT)
[2024-04-12] MEDS ORDERED: MethylPREDNISolone Sod Succ 125 MG Vial IV SCH (14:00)
--- NOTE | 2024-04-12 16:25 | NUR ---
DISCUSSED CASE WITH PROVIDER DURING ROUNDS, AND BEDSIDE RN. ASSESSED PATIENT. SHE IS NOT EATING AT THIS TIME. CALLED DAUGHTER YAKELIN AND DISCUSSED PATIENTS CURRENT CONDITION. EXPRESSED THAT WE WOULD NEED TO DISCUSS THE OPTION OF CARE AND THAT SHE WOULD NEED CONSIDER THESE OPTION SO THAT WE ARE ABLE TO DECIDE ON A DIRECTION OF CARE. I DISCUSSED CODE STATUS WITH HER AND REVIEWED THE OPTIONS FOR CPR AND MEDICAL INTERVENTION. SHE HAD NOT THOUGHT ABOUT THESE OPTION AND I TOLD HER WE WOULD DISCUSS MORE WHEN SHE COMES IN. YAKELIN REPORTED THAT IN 2020 HER MOTHER SUFFERED A STROKE AND SHE WAS LIVING IN A FACILITY. YAKELIN'S SISTER TOOK HER OUT OF THE FACILITY BECAUSE PAT DID NOT WANT TO BE THERE. MARIA ESTHER SISTER AND HER BROTHER TOOK OVER CARE. BROTHER IN AUGUST. YAKELIN HAS TAKEN OVER HER MOTHERS CARE.
--- NOTE | 2024-04-12 17:46 | NUR ---
GOALS OF CARE CONVERSATION TOOK PLACE IN THE PALLIATIVE CARE OFFICE. PROVIDED INFORMATION ABOUT HOSPICE. GAVE DEMENTIA ROADMAP, HARD CHOICES, AND CONSIDERING COMFORT CARE. EMPHASISED THAT HOSPICE IS CHANGING THE DIRECTION OF CARE FROM CURATIVE TO COMFORT AND PROVIDING EXRA SUPPORT FOCUSING ON SYMPTOM MANAGMENT, AND QUALITY OF LIFE. DISCUSSED CODE STATUS FAMILY IS NOT READY TO MAKE A DECISION YET AND WILL NEED THE EVENING TO DISCUSS. WALKED FAMILY TO ROOM.
--- NOTE | 2024-04-12 18:40 | NUR ---
SHIFT SUMMARY PATIENT ALERT AT TIMES AND ABLE TO ANSWER SOME QUESTIONS. PATIENT CONTINUES TO HAVE PAIN ON L SIDE WITH MOVEMENT. PATIENT CONTINUES TO REFUSE TO EAT. PATIENT STATES SHE DOES NOT WANT FOOD AND ONLY WANTS TO SLEEP. PATIENT CONTINUES TO HAVE DARK LIQUID STOOLS. AREAS OF EXCORIATION IMPROVED ON BUTTOCKS AND BACK. FAMILY IN TO SPEAK WITH PALLIATIVE CARE REGARDING PLAN AND CODE STATUS. IVS LEAKING AT END OF SHIFT. PPN ON HOLD AT THIS TIME BECAUSE OF NO IV ACCESS.
[2024-04-12 19:31] VITALS: BP 114/59
--- NOTE | 2024-04-13 04:31 | NUR ---
A&OX2 THIS SHIFT, ANSWERING QUESTIONS APPROPIATELY W/SHORT SENTENCES, DENIED PAIN WHEN RESTING BUT C/O LLE PAIN W/REPOSITIONING, REFUSED ANY PO INTAKE THIS SHIFT, MIDLINE PLACED TO RUE-ABX INFUSED AND PPN RESTARTED, ONE DARK LOOSE STOOL THIS SHIFT, PT SLEEPING AT THIS TIME, CALL LIGHT IN REACH, VSS, REMAINS ON RA SATS AT 100%
[2024-04-13 04:36] VITALS: BP 123/82
[2024-04-13 05:46] LABS: Hematocrit 22.2 % (33.0-51.0); Hemoglobin 7.4 g/dL (11.5-16.0); Mean Corpuscular HGB 27.6 pg (26.0-34.0); Mean Corpuscular HGB Conc 33.3 g/dL (31.5-36.5); Mean Corpuscular Volume 83 fL (80-100); Mean Platelet Volume 10.3 fL (9.1-12.4); Platelet Count 102 K/mm3 (150-400); RDW Standard Deviation 44.8 fL (35.1-46.3); Red Blood Cell Count 2.68 M/mm3 (3.80-5.20); White Blood Cell Count 4.89 K/mm3 (4.00-11.30)
[2024-04-13 06:13] LABS: Albumin, Blood 1.7 g/dL (3.4-5.0); Albumin/Globulin Ratio 0.5 (0.8-1.8); Bilirubin, Total 0.6 mg/dL (0.1-1.0); Bun/Creatinine Ratio 34.2 (12.0-20.0); Calcium, Blood 7.3 mg/dL (8.5-10.1); Creatinine, Blood 0.96 mg/dL (0.40-1.00); Globulin, Blood 3.2 g/dL (2.2-4.0); Magnesium, Blood 2.3 mg/dL (1.6-2.4); Phosphorus, Blood 4.3 mg/dL (2.5-4.9); Potassium, Blood 4.7 mmol/L (3.5-5.5); Total Protein, Blood 4.9 g/dL (6.4-8.2)
[2024-04-13 07:18] VITALS: BP 114/73
[2024-04-13 15:06] VITALS: BP 119/78
--- NOTE | 2024-04-13 17:14 | NUR ---
ASSESSED PATIENT, SHE IS MORE ALERT TODAY THAT SHE WAS LAST VISIT. DISCUSSED CASE WITH DR. MAYO. MEETING SET FOR 1100, FAMILY HAS NOT COME IN AT THIS TIEM. CALLED DAUGHTER YAKELIN LEFT MESSAGE DISCUSSED WITH PROVIDER, PLANS TO RESUME ATTEMPTS TO CONTACT TOMORROW.
--- NOTE | 2024-04-13 17:25 | NUR ---
SHIFT SUMMARY PATIENT MORE ALERT TODAY AND INTERACTIVE. PATIENT ATTEMPTING TO SIP ON FLUIDS. CONTINUES TO HAVE PAIN IN L LEG AND L ARM WITH MOVEMENT/POSITIONING. DENIES PAIN WHEN UNDISTURBED. PATIENT CONTINUES TO HAVE LIQUID STOOLS THROUGHOUT THE DAY. PALLIATIVE CARE AND CASE MANAGEMENT ATTEMPTING TO CONTACT FAMILY TO DISCUSS PLAN. UNABLE TO REACH FAMILY. CONTINUE TO TURN PATIENT FREQUENTLY
[2024-04-13 19:22] VITALS: BP 136/81
[2024-04-13] MEDS ORDERED: Lactobacil 2-S.Thermo-Bifido 1 1 Cap PO SCH (21:00)
[2024-04-14 04:57] VITALS: BP 116/73
--- NOTE | 2024-04-14 05:48 | NUR ---
A&OX2, VSS, DENIES PAIN UNLESS BEING ROLLED TO R-THEN C/O L LEG BEING PAINFUL; AWAKE AND CONVERSING THIS SHIFT, STATING REPEATEDLY THAT "I MISS MY FAMILY" AND ASKING IF THEY HAVE BEEN TO SEE HER, 2 LOOSE INCON STOOLS (1 DARK), CONTINUES PPN PER MAR, REPOS Q2, SLEEPING AT THIS TIME, BED ALARM ACTIVE, WILL CONT TO MONITOR UNTIL REPORT GIVEN TO ONCOMING NURSE.
--- NOTE | 2024-04-14 07:19 | NUR ---
ASSUMED CARE OF PATIENT. AWAKE, SUPINE IN BED. DID NOT PARTICIPATE IN SHIFT CHANGE REPORT.
--- NOTE | 2024-04-14 07:36 | NUR ---
CALL FROM ARINA IN TELE STATING PATIENT SHOWING PROLONGED QT. NO RECENT MEDICATIONS GIVEN. SHE DID JUST HAVE HER BLOOD DRAWN AND WAS EXPERIENCING SOME ANXIETY.
[2024-04-14 07:45] VITALS: BP 128/78
[2024-04-14 10:51] LABS: Hematocrit 21.6 % (33.0-51.0); Hemoglobin 7.3 g/dL (11.5-16.0); Mean Corpuscular HGB Conc 33.8 g/dL (31.5-36.5); Mean Corpuscular Volume 80 fL (80-100); Mean Platelet Volume 10.5 fL (9.1-12.4); Platelet Count 129 K/mm3 (150-400); RDW Coefficient Variation 14.8 % (11.7-14.2); White Blood Cell Count 8.79 K/mm3 (4.00-11.30)
[2024-04-14 11:03] LABS: Bun/Creatinine Ratio 47.9 (12.0-20.0); Calcium, Blood 8.3 mg/dL (8.5-10.1); Creatinine, Blood 0.88 mg/dL (0.40-1.00); Magnesium, Blood 2.4 mg/dL (1.6-2.4); Phosphorus, Blood 4.1 mg/dL (2.5-4.9); Potassium, Blood 4.8 mmol/L (3.5-5.5)
[2024-04-14 16:21] VITALS: BP 136/66
--- NOTE | 2024-04-14 18:56 | NUR ---
END OF SHIFT SUMMARY: A&Ox1-2. COOPERATIVE WITH CARE. DOES NOT USE CALL LIGHT. CANNOT ADVOCATE NEEDS. INCONTINENT OF BOWEL AND BLADDER; ROUTINE ROLL CHANGES PROVIDED. MULTIPLE LIQUID BOWEL MOVEMENTS TODAY. BEDBOUND AND DOES NOT AMBULATE. REFUSING ALL P.O. INTAKE. AWAITING FAMILY DECISION RE: GOALS OF CARE. BED IN LOWEST POSITION, CALL LIGHT WITHIN REACH, ALL NEEDS MET. REPORT TO ONCOMING NURSE.
[2024-04-14 20:23] VITALS: BP 135/84
--- NOTE | 2024-04-15 04:53 | NUR ---
A&O TO SELF, ABLE TO COMMUNICATE IN SHORT SENTENCES AND ANSWER QUESTIONS, VSS, CONTINUES TO C/O PAIN IN L THIGH W/REPOSITIONING, L THIGH IS EDEMATOUS AND FIRM, DECLINED PO MEDS, AWAKE WATCHING TV T/O THE NIGHT, PPN INFUSION CONTINOUS, BED ALARM ACTIVE, WILL CONT TO MONITOR UNTIL REPORT GIVEN TO ONCOMING NURSE.
[2024-04-15 05:26] VITALS: BP 139/86
[2024-04-15 06:22] LABS: Hematocrit 21.6 % (33.0-51.0); Hemoglobin 7.4 g/dL (11.5-16.0); Mean Corpuscular HGB 27.6 pg (26.0-34.0); Mean Corpuscular HGB Conc 34.3 g/dL (31.5-36.5); Mean Corpuscular Volume 81 fL (80-100); Platelet Count 163 K/mm3 (150-400); RDW Coefficient Variation 15.2 % (11.7-14.2); RDW Standard Deviation 44.7 fL (35.1-46.3); Red Blood Cell Count 2.68 M/mm3 (3.80-5.20); White Blood Cell Count 12.79 K/mm3 (4.00-11.30)
[2024-04-15 06:48] LABS: BAND PERCENT MAN 3 % (0-8); BASOPHILS PERCENT MAN 0 % (0-2); EOSINOPHILS PERCENT MAN 0 % (0-6); LYMPHOCYTES ABSOLUTE MAN 0.76 K/mm3 (0.84-5.20); LYMPHOCYTES PERCENT MAN 6 % (21-46); METAMYELOCYTE ABSOLUTE MAN 0.12 K/mm3 (0.00-0.00); METAMYELOCYTE PERCENT MAN 1 % (0-0); MONOCYTES ABSOLUTE MAN 1.79 K/mm3 (0.16-1.47); MONOCYTES PERCENT MAN 14 % (4-13); MYELOCYTE ABSOLUTE MAN 0.63 K/mm3 (0.00-0.00); MYELOCYTE PERCENT MAN 5 % (0-0); NEUTROPHILS ABSOLUTE MAN 9.46 K/mm3 (1.96-9.15); SEG NEUTROPHILS PERCENT MAN 71 % (41-73); TOTAL CELLS COUNTED 100
[2024-04-15 07:01] LABS: Bun/Creatinine Ratio 54.1 (12.0-20.0); Calcium, Blood 8.3 mg/dL (8.5-10.1); Creatinine, Blood 0.83 mg/dL (0.40-1.00); Magnesium, Blood 2.5 mg/dL (1.6-2.4); Phosphorus, Blood 4.3 mg/dL (2.5-4.9); Potassium, Blood 5.4 mmol/L (3.5-5.5)
[2024-04-15 07:11] VITALS: BP 145/82
--- NOTE | 2024-04-15 08:03 | NUR ---
ASSUMED CARE OF PATIENT. AWAKE DURING SHIFT-CHANGE REPORT. VISIBLY UPSET, SHAKING, AND LOOKING AROUND WITH WIDE EYES. STATES "IT'S HAPPENING AGAIN". WHEN ASKED WHAT SHE MEANT, SHE STATED SHE KNEW WHERE SHE WAS, BUT DID NOT KNOW WHERE HER FAMILY WAS. LET HER KNOW IT WAS SHIFT CHANGE AND VERY EARLY IN THE MORNING AND DAUGHTER SHOULD BE HERE IN AWHILE. THIS SEEMED TO CONSOLE HER SHE SETTLED BACK INTO BED AND CLOSED HER EYES.
[2024-04-15 15:24] VITALS: BP 137/80
--- NOTE | 2024-04-15 17:06 | NUR ---
END OF SHIFT SUMMARY: A&Ox3-4; NOT ORIENTED TO CURRENT SITUATION. WAS AWAKE AT BEGINNING OF SHIFT BUT HAS OTHERWISE SLEPT ENTIRETY OF SHIFT, AGAIN REFUSING ANY PO INTAKE, INCLUDING APPETITE STIMULANT. TELE IN BETWEEN SINUS AND JUNCTIONAL WITH NORMAL QT-INTERVAL. COOPERATIVE WITH CARE. DOES NOT USE CALL LIGHT. DOES NOT ADVOCATE NEEDS. INCONTINENT OF BOWEL AND BLADDER; ROUTINE ROLL CHANGES PROVIDED. BEDBOUND AND DOES NOT AMBULATE. CONTINUE TO AWAIT FAMILY DECISION RE: GOALS OF CARE. BED IN LOWEST POSITION, CALL LIGHT WITHIN REACH, ALL NEEDS MET. REPORT TO ONCOMING NURSE.
[2024-04-15 20:54] VITALS: BP 132/91
--- NOTE | 2024-04-16 05:09 | NUR ---
SHIFT SUMMARY 73 YR F ADMITTED ON 04/11/24. FULL CODE. NO ACUTE CHANGES THIS SHIFT. PT WAS AWAKE VISITING WITH HER DAUGHTER AT BEGINNING OF SHIFT. PT AGREED TO TAKE ORAL PROBIOTIC AND DID SO WITH WATER AND NO DIFFICULTY. TPN RUNNING CONTINUOUSLY. AFTER DAUGHTER LEFT, PT SLEPT FOR THE REST OF THE NIGHT. NO ADVERSE EVENTS REPORTED FROM [facility]. WILL CONTINUE TO MONITOR. BED IN LOW POSITION AND CALL LIGHT IN REACH.
[2024-04-16 05:17] VITALS: BP 131/84
[2024-04-16 06:19] LABS: Hematocrit 18.6 % (33.0-51.0); Hemoglobin 6.4 g/dL (11.5-16.0)
[2024-04-16 06:34] LABS: Bun/Creatinine Ratio 61.8 (12.0-20.0); Calcium, Blood 8.1 mg/dL (8.5-10.1); Creatinine, Blood 0.78 mg/dL (0.40-1.00); Magnesium, Blood 2.4 mg/dL (1.6-2.4); Potassium, Blood 5.8 mmol/L (3.5-5.5)
[2024-04-16 07:58] VITALS: BP 128/81
[2024-04-16] MEDS ORDERED: Furosemide 10 MG/ML 4ML Vial IV ONE (09:00)
[2024-04-16] MEDS ORDERED: NS 500 ML IV SCH (09:00)
--- NOTE | 2024-04-16 11:46 | NUR ---
CASE CONFERENCE Patient is still not eating or drinking. She is continuing to decline, and family updated. They are agreeable to comfort care, along with changing code status to DNR. Plan for pt to discharge tomorrow with hospice, as grandson is available for hospice admission. Dr. Pérez and CM updated.
--- NOTE | 2024-04-16 16:20 | NUR ---
PT AOX1 AND VERY SOMULENT FOR MOST OF THE DAY. PT IS INCONTENT OF URINE AND BOWEL. PT WAS A FULL CODE AND DR MAYO HAD ORDERED PRBC FOR PT DUE TO HGB 6.4. NO BLOOD PERMISSION SLIP WAS SIGNED. PALLIATIVE CARE WAS ABLE TO CONTACT FAMILY AND CODE STATUS TO DNR WAS MADE ALONG WITH DECISION TO HAVE PT RETURN HOME TOMORROW ON HOSPICE. PPN WAS STOPPED. PT HAS BED ALARM WILL CONTINUE TO MONITOR.
[2024-04-16 16:29] VITALS: BP 132/94
[2024-04-16 19:58] VITALS: BP 136/74
[2024-04-17 03:06] VITALS: BP 139/74
--- NOTE | 2024-04-17 03:37 | NUR ---
SHIFT SUMMARY PT HAS SLEPT FOR THE ENTIRETY OF THIS SHIFT. SHE HAS ONLY BEEN AWAKE FOR REPOSITIONING AND BRIEF CHANGES. SHE IS ABLE TO FOLLOW INSTRUCTIONS BUT HAS VERY LITTLE VERBAL COMMUNICATION. SHE DOES NOT APPEAR TO BE IN PAIN OR DISCOMFORT. WILL CONTINUE TO MONITOR. BED IN LOW POSITION AND CALL LIGHT IN REACH.
[2024-04-17 07:34] VITALS: BP 139/63
[2024-04-17] MEDS ORDERED: Acetaminophen 650 MG Supp PR PRN (08:15)
[2024-04-17] MEDS ORDERED: Scopolamine Hydrobromide Patch TOP PRN (08:15)
[2024-04-17] MEDS ORDERED: Atropine Sulfate 1% Opth Soln 2ML BTL SL PRN (08:15)
[2024-04-17] MEDS ORDERED: LORazepam 1 MG Tab PO PRN (08:15)
[2024-04-17] MEDS ORDERED: Morphine Sulfate 20 MG/1ML 1 ML Oral Syringe SL PRN (08:15)
[2024-04-17] MEDS ORDERED: Promethazine HCl 25 MG Supp PR PRN (08:20)
[2024-04-17] MEDS ORDERED: ATROPINE SULFATE2 M1 SL (10:46)
[2024-04-17] MEDS ORDERED: Ativan1 MG PO (10:47)
[2024-04-17] MEDS ORDERED: TRANSDERM-SCOP1 EA13 TOP (10:49)
--- NOTE | 2024-04-17 14:52 | NUR ---
PT WAS TRANSFERED HOME VIA [facility] TO BE ON HOSPICE. ARRANGEMENTS ALREADY SET UP BY [facility]. ALL PERSONAL BELONGINGS WERE COLLECTED AND TAKEN WITH PT. DISCHARGE PAPERWORK WAS SENT WITH PT. PT VERY TIRED AND DID NOT VERBIZED MUCH TODAY.
== END 2024-04-17 14:13 | disposition hospice, home (50) | DRG 177 ==
LOC: ER 22:15 → ERHOLD 22:16 → MEDS 04-10 15:52 → ENPENDDIS 04-17 11:52 → MEDS 04-17 14:13
PROVIDERS: Emergency Medicine; Hospitalist; Internal Medicine; Nurse Practitioner Acute Care; Student in an Organized Health Care Education/Training Program; ADMIT Internal Medicine
PROC: 3E0336Z Introduction of Nutritional Substance into Peripheral Vein, Percutaneous Approach (ICD-10-PCS; principal; 2024-04-11)
DX: U07.1 COVID-19 (principal); E43 Unspecified severe protein-calorie malnutrition; G92.8 Other toxic encephalopathy; A08.11 Acute gastroenteropathy due to Norwalk agent; N39.0 Urinary tract infection, site not specified; R64 Cachexia; Z51.5 Encounter for palliative care; Z66 Do not resuscitate; J11.1 Influenza due to unidentified influenza virus with other respiratory manifestations; Z68.26 Body mass index [BMI] 26.0-26.9, adult; G40.909 Epilepsy, unspecified, not intractable, without status epilepticus; B96.20 Unspecified Escherichia coli [E. coli] as the cause of diseases classified elsewhere; I10 Essential (primary) hypertension; F41.9 Anxiety disorder, unspecified; M79.7 Fibromyalgia; E83.39 Other disorders of phosphorus metabolism; E87.6 Hypokalemia; R62.7 Adult failure to thrive; J32.9 Chronic sinusitis, unspecified; R54 Age-related physical debility; Z90.49 Acquired absence of other specified parts of digestive tract; Z98.890 Other specified postprocedural states; Z87.891 Personal history of nicotine dependence; Z79.82 Long term (current) use of aspirin; Z79.899 Other long term (current) drug therapy
CPT/HCPCS: 0241U; 36415; 70450; 71046; 80048; 80053; 80202; 81001; 82140; 82803; 82947; 83605; 83735; 84100; 84145; 84443; 84478; 84484; 85014; 85018; 85025; 85027; 86850; 86900; 86901; 86923; 87040; 87077; 87086; 87186; 87507; 93005; 93010; 96361; 96365; 96366; 96367; 96368; 96372; 96372-59; 96376; 99285-25; A9270; G0378; G0480; J0456; J0696; J1650; J1885; J1940; J2919; J3370; J3411; J3475; J3480; J7030; J7040; J7050; J7060; J7070; J7121; P9612